=== PATIENT | female | born 1975 | race Caucasian/White ===

== ENCOUNTER 2023-05-08 03:33 | Day surgery (SDC) | payer BC ==
[2023-05-08 09:17] VITALS: BP 131/77
[2023-05-08] MEDS ORDERED: CITALOPRAM HBR20 M9 PO (10:15)
[2023-05-08] MEDS ORDERED: METHOTREXATE2.510 PO (10:16)
[2023-05-08] MEDS ORDERED: NEURONTIN300 MG PO (10:16)
[2023-05-08] MEDS ORDERED: FOLI1 PO (10:16)
[2023-05-08] MEDS ORDERED: OMEP20ER PO (10:17)
[2023-05-08] MEDS ORDERED: ESTRADIOL1 M1 PO (10:17)
[2023-05-08] MEDS ORDERED: OMEPRAZOLE20 MG PO (10:18)
[2023-05-08] MEDS ORDERED: LORCET PLUS PO (10:19)
[2023-05-08] MEDS ORDERED: NURTEC ODT75 MG PO (10:20)
[2023-05-08] MEDS ORDERED: FERSU300 PO (10:21)
[2023-05-08] MEDS ORDERED: ALBU90OI INH (10:21)
[2023-05-08] MEDS ORDERED: KETO60I IM (10:22)
[2023-05-08] MEDS ORDERED: ONDA4ODT MM (10:23)
[2023-05-08] MEDS ORDERED: TIZA4 PO (10:23)
== END 2023-05-08 10:21 | disposition home or self-care (01) ==
LOC: ATC 03:33
DX: D50.9 Iron deficiency anemia, unspecified (principal); J45.909 Unspecified asthma, uncomplicated; K21.9 Gastro-esophageal reflux disease without esophagitis; G47.30 Sleep apnea, unspecified; G43.909 Migraine, unspecified, not intractable, without status migrainosus; M06.9 Rheumatoid arthritis, unspecified
CPT/HCPCS: 96365; J2916

== ENCOUNTER 2023-05-23 01:54 | Day surgery (SDC) | payer BC ==
[~2023-05-23 01:54] MED LIST: ALBU90OI INH; CITALOPRAM HBR20 M9 PO; ESTRADIOL1 M1 PO; FERSU300 PO; FOLI1 PO; KETO60I IM; LORCET PLUS PO; METHOTREXATE2.510 PO; NEURONTIN300 MG PO; NURTEC ODT75 MG PO; OMEP20ER PO; OMEPRAZOLE20 MG PO; ONDA4ODT MM; TIZA4 PO
[2023-05-23 08:20] VITALS: BP 150/94
== END 2023-05-23 09:21 | disposition home or self-care (01) ==
LOC: ATC 01:54
DX: D50.9 Iron deficiency anemia, unspecified (principal); Z79.899 Other long term (current) drug therapy; Z87.891 Personal history of nicotine dependence
CPT/HCPCS: 96365; J2916

== ENCOUNTER 2025-04-13 11:41 | Day surgery (SDC) | payer BC ==
[~2025-04-13] VITALS: Ht 152.4 cm; Wt 56.0 kg
[~2025-04-13 11:41] MED LIST changes: +BANOPHEN25 MG PO; +Hair, Skin & N1 EACH PO; +NALOXONE HCL4 MG; +ONDA4 PO; +TIMO.5OPSO; +Triamcinolone A15 G3; +XALATAN2.5 ML; +Zonegran100 MG
[2025-04-13] MEDS ORDERED: Hydroxychloroq200 MG (12:18)
[2025-04-13] MEDS ORDERED: ESTRADIOL 2 MG (12:18)
[2025-04-13] MEDS ORDERED: ZANAFLEX413 (12:18)
[2025-04-13] MEDS ORDERED: DECARA1250 MC1 (12:19)
[2025-04-13] MEDS ORDERED: LEFLUNOMIDE20 M2 (12:19)
[2025-04-13] MEDS ORDERED: ZOLP5 (12:19)
[2025-04-13] MEDS ORDERED: ESTRADIOL42.5 GM (12:19)
[2025-04-13] MEDS ORDERED: DODEX1000 MCG/3 (12:19)
[2025-04-13] MEDS ORDERED: BUDESONIDE-FO10.2 G3 (12:19)
[2025-04-13] MEDS ORDERED: CELEXA40 M9 (12:20)
[2025-04-13] MEDS ORDERED: MOME.1TO (12:20)
[2025-04-13] MEDS ORDERED: NURTEC ODT75 MG (12:21)
[2025-04-13] MEDS ORDERED: PREG75 PO (12:21)
[2025-04-13] MEDS ORDERED: PANT20 (12:21)
[2025-04-13 13:35] VITALS: BP 110/73
== END 2025-04-13 13:35 | disposition home or self-care (01) ==
LOC: ORSCSDS 11:41
PROVIDERS: Internal Medicine Gastroenterology
PROC: 0DB68ZX Excision of Stomach, Via Natural or Artificial Opening Endoscopic, Diagnostic (ICD-10-PCS; principal; 2025-04-13 13:45)
DX: K21.9 Gastro-esophageal reflux disease without esophagitis (principal); K29.70 Gastritis, unspecified, without bleeding; R68.81 Early satiety; R10.13 Epigastric pain; D50.9 Iron deficiency anemia, unspecified; R14.0 Abdominal distension (gaseous); G47.33 Obstructive sleep apnea (adult) (pediatric); I48.91 Unspecified atrial fibrillation; M79.7 Fibromyalgia; M06.9 Rheumatoid arthritis, unspecified; Z86.711 Personal history of pulmonary embolism; F41.1 Generalized anxiety disorder; F32.A Depression, unspecified; Z95.0 Presence of cardiac pacemaker; Z87.891 Personal history of nicotine dependence; Z79.899 Other long term (current) drug therapy
CPT/HCPCS: 88305; 88341; 88342; J2704; J7120